=== PATIENT | male | born 1960 | race Caucasian/White ===

== ENCOUNTER 2017-11-11 17:24 | Emergency (ER) | payer OTHER ==
[~2017-11-11] VITALS: Ht 175.3 cm; Wt 110.0 kg
[2017-11-11 17:30] VITALS: BP 166/84; PULSE 88; RESP 18; TEMP 98.3; O2SAT 97
[2017-11-11 17:51] VITALS: BP 132/84; PULSE 106; RESP 16; TEMP 97.5; O2SAT 98
[2017-11-11] MEDS ORDERED: UNK BP MED PO (17:59)
[2017-11-11] MEDS ORDERED: SODIUM CHLOR 0.9% 1000 ML INJ 1,000 ML IV SCH (18:33)
[2017-11-11] MEDS ORDERED: SODIUM CHLORIDE 0.9% FLUSH 10 ML FLUSH IVF PRN (18:45)
[2017-11-11] MEDS ORDERED: IOHEXOL 350 MG/ML 10 ML VIAL (for RAD DIAG) IVCONTRAST ONE (19:36)
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
[2017-11-11 20:04] LABS: AUTOMATED NEUTROPHIL # 12.6 TH/MM3 (1.8-7.7); BASOPHIL # 0.1 TH/MM3 (0-0.2); BASOPHIL % 0.4 % (0.0-2.0); EOSINOPHIL # 0.1 TH/MM3 (0-0.4); EOSINOPHIL % 0.4 % (0.0-4.0); HEMATOCRIT 37.4 % (39.0-51.0); HEMOGLOBIN 12.7 GM/DL (13.0-17.0); LYMPH % 10.9 % (9.0-44.0); LYMPHOCYTE # 1.7 TH/MM3 (1.0-4.8); MEAN CELL VOLUME 99.5 FL (80.0-100.0); MEAN CORPUSCULAR HEMOGLOBIN 33.6 PG (27.0-34.0); MEAN CORPUSCULAR HGB CONC 33.8 % (32.0-36.0); MEAN PLATELET VOLUME 7.8 FL (7.0-11.0); MONOCYTE # 0.8 TH/MM3 (0-0.9); NEUT % 83.3 % (16.0-70.0); PLATELET COUNT 245 TH/MM3 (150-450); RED BLOOD COUNT 3.76 MIL/MM3 (4.50-5.90); RED CELL DISTRIBUTION WIDTH 13.8 % (11.6-17.2); WHITE BLOOD COUNT 15.2 TH/MM3 (4.0-11.0)
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
[2017-11-11] MEDS ORDERED: LORazepam 2 MG/ML VIAL ONE (20:13)
[2017-11-11] MEDS ORDERED: TETANUS/DIPHTHERIA TOXOID ADULT 0.5 ML VIAL IM ONE (20:15)
[2017-11-11] MEDS ORDERED: LORazepam 2 MG/ML VIAL IM ONE (20:15)
[2017-11-11] MEDS ORDERED: ceFAZolin 2 GM PREMIX 50 ML IV ONE (20:15)
[2017-11-11 20:21] LABS: PROTHROMBIN TIME - PATIENT 10.1 SEC (9.8-11.6)
[2017-11-11 20:24] LABS: BICARBONATE 24.7 MEQ/L (21.0-32.0); CALCIUM 8.2 MG/DL (8.5-10.1); CREATININE 0.99 MG/DL (0.60-1.30)
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
[2017-11-11] MEDS ORDERED: AUGM875T3 PO (21:04)
[2017-11-11] MEDS ORDERED: IBUPROFEN 800 MG TAB PO ONE (22:00)
[2017-11-11 22:15] VITALS: PULSE 80; RESP 18; O2SAT 98
== END 2017-11-11 22:21 | disposition home or self-care (01) ==
LOC: NEPD 17:24
DX: S02.2XXA Fracture of nasal bones, initial encounter for closed fracture (principal); F10.129 Alcohol abuse with intoxication, unspecified; I10 Essential (primary) hypertension; S60.512A Abrasion of left hand, initial encounter; S60.511A Abrasion of right hand, initial encounter; S80.211A Abrasion, right knee, initial encounter; S00.01XA Abrasion of scalp, initial encounter; S83.91XA Sprain of unspecified site of right knee, initial encounter; V23.4XXA Motorcycle driver injured in collision with car, pick-up truck or van in traffic accident, initial encounter; Y90.8 Blood alcohol level of 240 mg/100 ml or more; Z23 Encounter for immunization; Z79.899 Other long term (current) drug therapy
CPT/HCPCS: 70450; 70486; 71045; 71260; 72125; 72129; 72132; 73564; 74177; 80048; 80307; 85025; 85610; 85730; 90471; 90714; 96365; 99285; J0690; J2060; J7030; Q9967